=== PATIENT | male | born 1965 | race Caucasian/White ===

== ENCOUNTER 2020-08-04 10:17 | Emergency (ER) | payer MEDICAID ==
[~2020-08-04] VITALS: Ht 175.3 cm; Wt 63.7 kg
[2020-08-04] MEDS ORDERED: KETOROLAC 30 MG/1 ML IVPush ONE (11:00)
[2020-08-04] MEDS ORDERED: DEXAMETHASONE 4 MG/ML, 1ML IVPush ONE (11:00)
[2020-08-04] MEDS ORDERED: SODIUM CHLORIDE FLUSH 10ML SYR IVF ONE (11:00)
[2020-08-04] MEDS ORDERED: ONDANSETRON 2MG/ML, 2ML IVPush ONE (11:00)
[2020-08-04] MEDS ORDERED: HYDROmorphone 2 MG/ML, 1ML IVPush PRN (11:00)
--- NOTE | 2020-08-04 11:00 | NUR ---
pt here c/o GO that is not resolved with meds. pt reports that he currently has stage 4 throat cancer and that he has fentanyl patches in place that are not resolving his GO. pt here form OOT. denies dizziness. no loss or change of vision. no new difficulty breathing speaking or swallowing. SO at bedside
[2020-08-04] MEDS ORDERED: DEXAMETHASONE 4 MG/ML, 1ML ONE ×2 (11:06→11:25)
[2020-08-04] MEDS ORDERED: KETOROLAC 30 MG/1 ML ONE (11:06)
[2020-08-04] MEDS ORDERED: ONDANSETRON 2MG/ML, 2ML ONE (11:06)
[2020-08-04] MEDS ORDERED: HYDROmorphone 2 MG/ML, 1ML ONE (11:07)
[2020-08-04] MEDS ORDERED: SODIUM CHLORIDE 0.9% 1,000ML IVBOLUS ONE (11:30)
--- NOTE | 2020-08-04 11:30 | NUR ---
pt has been medicated per order. warm blankets given and lights dimmed for comfort
--- NOTE | 2020-08-04 11:45 | NUR ---
pt sleeping. no apparent distress
[2020-08-04 12:37] VITALS: BP 131/79
--- NOTE | 2020-08-04 12:37 | NUR ---
no changes. pt resting in position of comfort. chart up for MD recheck
--- NOTE | 2020-08-04 12:39 | NUR ---
chart up for MD recheck report to Ricardo CHAMORRO for lunch
--- NOTE | 2020-08-04 13:16 | NUR ---
this pt was D/C by another RN
== END 2020-08-04 13:09 | disposition home or self-care (01) ==
LOC: ED 11:10
DX: R51.9 Headache, unspecified (principal); Z85.89 Personal history of malignant neoplasm of other organs and systems
CPT/HCPCS: 96361; 96374; 96375; 99284; J1100; J1170; J1885; J2405; J7030